=== PATIENT | female | born 1990 | race Hispanic/Latino ===

== ENCOUNTER 2016-11-18 21:01 | Observation (INO) | payer SELFPAY ==
[2016-11-18] MEDS ORDERED: Sodium Chloride 0.9% 1,000 ML IV STA (21:48)
[2016-11-18] MEDS ORDERED: Iohexol 240 (50 ml) PO ONE (21:49)
--- NOTE | 2016-11-18 22:05 | ED PDOC ---
HPI: General Adult Time Seen by Provider: 11/18/16 21:29 Chief Complaint (Nursing): Female Genitourinary History Per: Patient Additional Complaint(s): Pt. states today she developed RLQ abdominal pain associated with 2 day hx of non-bloody watery diarrhea and dysuria and frequency. Pt. states last week she had Radiation Ablation surgery done her LS spine done by Dr. Marcus without any complications. Reports only mild pain to the back which does improve with Percocet. Denies fever, recent antibiotic use, N/V, melena, hematochezia, BRBPR , incontinence, hematuria, flank pain, previous abdominal surgery. Past Medical History Reviewed: Historical Data, Nursing Documentation, Vital Signs Vital Signs: Last Vital Signs Temp 98.8 F 11/18/16 21:06 Pulse 75 11/18/16 21:06 Resp 16 11/18/16 21:06 BP 131/89 11/18/16 21:06 Pulse Ox 99 11/19/16 01:14 - Surgical History Other surgeries: radiation ablation LS spine surgery - Family History Family History: States: No Known Family Hx - Home Medications Home Medications: Ambulatory Orders Medication Instructions Recorded Cyclobenzaprine [Cyclobenzaprine 10 mg PO Q8H #12 tab 03/30/16 HCl] Ibuprofen [Motrin Tab] 800 mg PO Q6H PRN #20 tab 03/30/16 Nitrofurantoin Macrocrystals 100 mg PO BID #14 cap 11/19/16 [Macrobid] Phenazopyridine [Pyridium] 100 mg PO BID #6 tab 11/19/16 - Allergies Allergies/Adverse Reactions: Allergies Allergy/AdvReac Type Severity Reaction Status Date / Time acetaminophen [From Vicodin] AdvReac ITCHING Verified 03/30/16 17:35 hydrocodone bitartrate AdvReac ITCHING Verified 03/30/16 17:35 [From Vicodin] mushroom AdvReac RASH Verified 03/30/16 17:35 Review of Systems ROS Statement: Except As Marked, All Systems Reviewed And Found Negative Gastrointestinal: Positive for: Abdominal Pain, Diarrhea Physical Exam - Reviewed Nursing Documentation Reviewed: Yes Vital Signs Reviewed: Yes - Physical Exam Appears: Positive for: Well, Non-toxic, No Acute Distress Head Exam: Positive for: ATRAUMATIC, NORMAL INSPECTION, NORMOCEPHALIC Skin: Positive for: Normal Color, Warm. Negative for: Rash Eye Exam: Positive for: EOMI, Normal appearance, PERRL ENT: Positive for: Normal ENT Inspection Neck: Positive for: Normal, Painless ROM Cardiovascular/Chest: Positive for: Regular Rate, Rhythm Respiratory: Positive for: CNT, Normal Breath Sounds Gastrointestinal/Abdominal: Positive for: Normal Exam, Bowel Sounds, Soft, Tenderness (Mild RLQ tenderness), Other (negative workman's, rovsing's, and obturator signs) Back: Positive for: Normal Inspection. Negative for: L CVA Tenderness, R CVA Tenderness Extremity: Positive for: Normal ROM Neurologic/Psych: Positive for: Alert, Oriented - Laboratory Results Result Diagrams: 11/18/16 22:40 11/18/16 22:40 - ECG O2 Sat by Pulse Oximetry: 99 ED OBSERVATION Discharge: Yes Date of observation admission: 11/18/16 Time of observation admission: 22:06 - Observation admission statement Patient is being placed in observation because:: RLQ abdominal pain - Progress Note Progress Note: 11/18/16 22:[address] abd/pelvis w/ IV and PO contrast ordered. Morphine 4mg IV, zofran 4mg IV given. IV NS bolus given. Pt. kept NPO. 11/19/16 01:14 Pt. just returned from CT. Reports pain has improved but is still present. 11/19/16 02:00 CT abd/pelvis w/PO and IV contrast: Mild bladder wall thickening. This is a nonspecific finding, but can be seen with cystitis. Recommend clinical correlation. - Otherwise, no evidence of significant acute process. Appendix is normal. Urine dip shows: small leuks, no blood or nitrates Urine culture sent. Pt. informed of results. Disposition - Clinical Impression Clinical Impression: UTI (urinary tract infection) - Patient ED Disposition Is Patient to be Admitted: No - Disposition Disposition: Routine/Home Disposition Time: 02:20 Condition: IMPROVED
[2016-11-18] MEDS ORDERED: Iohexol 240 (50 ml) ONE (22:41)
[2016-11-18 22:49] LABS: BASO % 0.5 % (0.0-2.0); EOS # 0.1 K/uL (0.0-0.7); EOS % 1.7 % (0.0-4.0); HEMOGLOBIN 12.6 g/dL (12.0-16.0); LYMPH # 1.8 K/uL (1.0-4.3); MEAN CELL VOLUME 94.9 fl (81.0-99.0); MEAN CORPUSCULAR HEMOGLOBIN 31.6 pg (27.0-31.0); MEAN CORPUSCULAR HGB CONC 33.3 g/dL (33.0-37.0); MEAN PLATELET VOLUME 8.5 fl (7.2-11.7); MONO # 0.5 K/uL (0.0-0.8); MONO % 6.7 % (0.0-10.0); NEUT # 4.7 K/uL (1.8-7.0); NEUT % 66.1 % (50.0-75.0); RBC 3.97 Mil/uL (3.80-5.20); RED CELL DISTRIBUTION WIDTH 13.1 % (11.5-14.5); WHITE BLOOD COUNT 7.1 K/uL (4.8-10.8)
[2016-11-18 23:02] LABS: ALB/GLOB RATIO 1.2 (1.0-2.1); ALBUMIN 4.2 g/dL (3.5-5.0); ALT/SGPT 45 U/L (9-52); AST/SGOT 33 U/L (14-36); BLOOD UREA NITROGEN 15 mg/dl (7-17); CALCIUM 9.1 mg/dL (8.4-10.2); GFR AFRICAN-AMERICAN > 60; GFR NON-AFRICAN AMERICAN > 60
[2016-11-18 23:11] LABS: INR 0.9 (0.9-1.2); PARTIAL THROMBOPLASTIN TIME 27.8 Seconds (25.6-37.1); PROTHROMBIN TIME 10.1 Seconds (9.8-13.1)
[2016-11-19] MEDS ORDERED: Iohexol 300 100 ML IJ ONE (00:50)
[2016-11-19] MEDS ORDERED: Sodium Chloride 0.9% 50 ML IV ONE (00:51)
[2016-11-19 03:58] LABS: SQUAMOUS EPITHIAL 3 /hpf (0-5); URINE BACTERIA FEW (<OCC); URINE BILIRUBIN NEGATIVE (NEGATIVE); URINE BLOOD SMALL (NEGATIVE); URINE CLARITY SLIGHTY-CLOUDY (Clear); URINE COLOR YELLOW (YELLOW); URINE GLUCOSE (UA) NEG (Normal); URINE LEUKOCYTE ESTERASE LARGE Leu/uL (Negative); URINE NITRATE NEGATIVE (NEGATIVE); URINE PROTEIN NEGATIVE (NEGATIVE); URINE UROBILINOGEN 0.2-1.0 mg/dL (0.2-1.0)
--- NOTE | 2016-11-19 09:15 | CT ---
PROCEDURE: CT Abdomen and Pelvis with oral and IV contrast. HISTORY: RLQ pain COMPARISON: CT abdomen and pelvis with contrast performed 10/05/12 TECHNIQUE: Contiguous axial images of the abdomen and pelvis. Oral and IV contrast was administered. Coronal and Sagittal reformats generated and reviewed. Contrast dose: 95 cc Omnipaque 300 Radiation dose: Total exam DLP = 875.77 mGy-cm. This CT exam was performed using one or more of the following dose reduction techniques: Automated exposure control, adjustment of the mA and/or kV according to patient size, and/or use of iterative reconstruction technique. FINDINGS: LOWER THORAX: No visible consolidation, pleural effusion, or pneumothorax. LIVER: Hypoattenuation of the liver compatible with hepatic steatosis. GALLBLADDER AND BILE DUCTS: Unremarkable. PANCREAS: Unremarkable. SPLEEN: Several probable splenules. Otherwise unremarkable. ADRENALS: Unremarkable. KIDNEYS AND URETERS: The kidneys enhance symmetrically. No hydronephrosis or obstructing renal calculus. BLADDER: Mild thickening of the urinary bladder wall. REPRODUCTIVE: Uterus is present. APPENDIX: The appendix appears within normal limits of caliber. No secondary signs of acute appendicitis. BOWEL: The stomach is nondistended. The bowel loops appear within normal limits of caliber without evidence of intestinal obstruction.Mild wall thickening of a small segment of right colon of uncertain significance ; colitis is not excluded (i.e. infectious, inflammatory, ischemic). PERITONEUM: No significant free fluid. No definite free air. LYMPH NODES: Prominent but sub cm right lower quadrant lymph nodes, nonspecific. Sub cm bilateral inguinal lymph nodes, nonspecific. VASCULATURE: No aortic aneurysm. BONES: No acute osseous abnormality is detected. OTHER FINDINGS: Tiny fat containing umbilical hernia. IMPRESSION: Mild wall thickening of a small segment of right colon of uncertain significance ; colitis is not excluded (i.e. infectious, inflammatory, ischemic). Right lower quadrant prominent but sub cm lymph nodes, nonspecific. These may be reactive. Mild wall thickening of the urinary bladder. Recommend correlation with urinalysis in order to exclude cystitis. Hypoattenuation of the liver compatible with hepatic steatosis. Preliminary impression was provided by virtual radiologic. Findings discussed with Dr. Harris on 11/19/16 at 9:09 a.m.. Study was also marked for PA review.
[2016-11-19 12:12] VITALS: BP 131/89; PULSE 75; RESP 16; TEMP 98.8; O2SAT 99
== END 2016-11-19 06:00 | disposition home or self-care (01) ==
LOC: H.ER 21:01 → H.EROBSV 21:48
PROVIDERS: ADMIT Emergency Medicine; ATTEND Emergency Medicine
DX: N39.0 Urinary tract infection, site not specified (principal); K76.0 Fatty (change of) liver, not elsewhere classified
CPT/HCPCS: 36415; 74177; 80053; 81003; 81025; 85025; 85610; 85730; 86850; 86900; 87040; 87086; 87181; 96374; 96375; 99283; G0378; J1885; J2270; J2405; J7040; Q9966; Q9967